=== PATIENT | male | born 1950 | race Caucasian/White ===

== ENCOUNTER 2018-09-10 17:56 | Emergency (ER) | payer MEDICARE ==
[2018-09-10] MEDS ORDERED: Sodium Chloride 0.9% 1,000 ML IV STA (19:05)
[2018-09-10 19:07] VITALS: RESP 18; TEMP 97.9; O2SAT 100
[2018-09-10 20:12] LABS: BASO # 0.06 K/mm3 (0.0-2.0); BASO % 1.3 % (0.0-3.0); EOS % 0.6 % (1.5-5.0); HEMOGLOBIN 12.2 g/dL (14.0-18.0); LYMPH # 1.3 (1.2-3.4); LYMPH % 27.4 % (22.0-35.0); MEAN CELL VOLUME 84.3 fl (80.0-105.0); MEAN CORPUSCULAR HEMOGLOBIN 28.2 pg (25.0-35.0); MEAN CORPUSCULAR HGB CONC 33.4 g/dl (31.0-37.0); MEAN PLATELET VOLUME 12.2 fl (7.0-11.0); MONO # 0.2 (0.1-0.6); MONO % 4.3 % (1.0-6.0); RBC 4.33 10^6/uL (3.5-6.1); RED CELL DISTRIBUTION WIDTH 13.6 % (11.5-14.5); WHITE BLOOD COUNT 4.7 10^3/uL (4.5-11.0)
[2018-09-10 20:14] LABS: PH,URINE 7.5 (4.7-8.0); URINE BILIRUBIN NEGATIVE (NEGATIVE); URINE BLOOD NEGATIVE (NEGATIVE); URINE GLUCOSE (UA) NEGATIVE (NEGATIVE); URINE LEUKOCYTE ESTERASE NEGATIVE Leu/uL (NEGATIVE); URINE PROTEIN TRACE mg/dL (<30 mg/dL); URINE UROBILINOGEN 0.2 E.U./dL (<1 E.U./dL)
[2018-09-10 20:15] LABS: URINE APPEARANCE CLEAR (CLEAR); URINE COLOR LIGHT YELLOW (YELLOW)
[2018-09-10 20:17] LABS: INR 1.11; PARTIAL THROMBOPLASTIN TIME 32.4 Seconds (26.9-38.3); PROTHROMBIN TIME 12.3 SECONDS (9.4-12.5)
[2018-09-10 20:19] LABS: URINE HYALINE CAST 0 - 2 /hpf; URINE RBC 0 - 2 /hpf (0-2)
[2018-09-10 20:26] LABS: ALB/GLOB RATIO 1.2 (1.1-1.8); ALBUMIN 4.5 g/dL (3.0-4.8); ALT/SGPT 15 U/L (7-56); AMYLASE 90 U/L (35-125); AST/SGOT 22 U/L (17-59); BLOOD UREA NITROGEN 24 mg/dL (7-21); CALCIUM 9.7 mg/dL (8.4-10.5); GFR NON-AFRICAN AMERICAN 60; LIPASE 255 U/L (23-300)
[2018-09-10 20:37] LABS: TROPONIN I < 0.01 ng/mL
[2018-09-10 21:46] VITALS: BP 138/75; PULSE 86
--- NOTE | 2018-09-10 21:48 | ED PDOC ---
Arrival/HPI - General Chief Complaint: Back Pain Time Seen by Provider: 09/10/18 18:45 - History of Present Illness Narrative History of Present Illness (Text): 68 y/o male with PMH of HTN presents to the ED c/o right sided flank pain x 1 day. Pain starts in right flank and radiates through right side of abdomen into right groin and testicle, worse with movement. Pt has never experienced pain like this before. Associated nausea. Denies fever, chills, chest pain, SOB, saddle anesthesia, bowel/bladder incontinence, penile discharge, dysuria, vomiting, diarrhea, dizziness, diarrhea, rectal pain, or any other associated symptoms. Past Medical History - Provider Review Nursing Documentation Reviewed: Yes - Cardiac Hx Cardiac Disorders: Yes Hx Hypertension: Yes - Pulmonary Hx Respiratory Disorders: No - Neurological Hx Neurological Disorder: No - HEENT Hx HEENT Disorder: No - Renal Hx Renal Disorder: No - Endocrine/Metabolic Hx Endocrine Disorders: No - Hematological/Oncological Hx Blood Disorders: No - Integumentary Hx Dermatological Disorder: No - Musculoskeletal/Rheumatological Hx Musculoskeletal Disorders: No - Gastrointestinal Hx Gastrointestinal Disorders: No - Genitourinary/Gynecological Hx Genitourinary Disorders: No - Psychiatric Hx Psychophysiologic Disorder: No Hx Substance Use: No - Anesthesia Hx Anesthesia: Yes Hx Anesthesia Reactions: No Hx Malignant Hyperthermia: No Family/Social History - Physician Review Nursing Documentation Reviewed: Yes Family/Social History: No Known Family HX Smoking Status: Never Smoked Hx Alcohol Use: No Hx Substance Use: No Allergies/Home Meds Allergies/Adverse Reactions: Allergies No Known Allergies Allergy (Verified 09/10/18 18:28) Review of Systems - Physician Review All systems were reviewed & negative as marked: Yes - Review of Systems Constitutional: Normal. absent: Fevers Eyes: Normal. absent: Vision Changes ENT: Normal. absent: Sore Throat, Sinus Congestion Respiratory: Normal. absent: SOB, Cough Cardiovascular: Normal. absent: Chest Pain, Palpitations, Syncope Gastrointestinal: Abdominal Pain, Constipation, Nausea. absent: Diarrhea, Vomiting, Appetite Changes Genitourinary Male: Normal, Other (testicular pain). absent: Dysuria, Frequency, Hematuria Musculoskeletal: Back Pain. absent: Neck Pain Skin: Normal. absent: Rash Neurological: Normal. absent: Headache, Dizziness Endocrine: Normal Hemo/Lymphatic: Normal Psychiatric: Normal Physical Exam Vital Signs Reviewed: Yes Vital Signs Temp Pulse Resp BP Pulse Ox 09/10/18 21:45 86 18 138/75 100 09/10/18 19:06 97.9 F 93 H 18 142/85 100 Temperature: Afebrile Blood Pressure: Normal Pulse: Regular Respiratory Rate: Normal Appearance: Positive for: Well-Appearing, Non-Toxic, Comfortable Pain Distress: None Mental Status: Positive for: Alert and Oriented X 3 - Systems Exam Head: Present: Atraumatic, Normocephalic Pupils: Present: PERRL Extroacular Muscles: Present: EOMI Conjunctiva: Present: Normal Mouth: Present: Moist Mucous Membranes Neck: Present: Normal Range of Motion Respiratory/Chest: Present: Clear to Auscultation, Good Air Exchange. No: Respiratory Distress, Accessory Muscle Use Cardiovascular: Present: Regular Rate and Rhythm, Normal S1, S2, Peripheal Pulses Present Abdomen: Present: Tenderness (mild, right sided ), Normal Bowel Sounds. No: Distention, Peritoneal Signs, Rebound, Guarding Genitourinary Male: Present: Testicle Tenderness (right), Hernias (bilateral inguinal, reducible), Other (small right testicle). No: Penile Discharge, Penile Swelling, Masses, Erythema, Testicle Swelling Back: Present: Normal Inspection, CVA Tenderness (right). No: Midline Tenderness, Paraspinal Tenderness Upper Extremity: Present: Normal Inspection, Normal ROM, NORMAL PULSES, Neurovascularly Intact, Capillary Refill < 2s. No: Cyanosis, Edema, Tenderness, Temperature Abnormalties Lower Extremity: Present: Normal Inspection, NORMAL PULSES, Normal ROM, Neurovascularly Intact, Capillary Refill < 2 s. No: Edema, Tenderness, Swelling, Temperature Abnormalties Neurological: Present: GCS=15, CN II-XII Intact, Speech Normal, Motor Func Grossly Intact, Normal Sensory Function, Gait Normal Skin: Present: Warm, Dry, Normal Color. 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 Virginia Walsh, who recommends discharge home with outpatient urology followup. Discussed results of diagnostic imaging, results faxed to him along with patient's face sheet. Advised pt to followup with Dr. Walsh in the AM. Pt verbalized understanding, states he will followup. Discussed case and diagnostic testing results in depth with ED attending Dr Singh who recommends discharge home with Jim Benavides and GI/urology followup. Diagnostic testing results and plan of care discussed with patient. Strict instructions given regarding prescription use, importance of followup, and signs/symptoms to return to ER including worsening pain, intractable vomiting, or any other new/worsening symptoms. Pt verbalized understanding of discussion. Patient is A&Ox3, ambulating with steady gait, with vital signs stable for discharge. - Lab Interpretations Lab Results: PT 12.3 SECONDS (9.4-12.5) 09/10/18 19:53 INR 1.11 09/10/18 19:53 APTT 32.4 Seconds (26.9-38.3) 09/10/18 19:53 Troponin I < 0.01 ng/mL 09/10/18 19:53 Total Bilirubin 0.6 mg/dL (0.2-1.3) 09/10/18 19:53 AST 22 U/L (17-59) 09/10/18 19:53 ALT 15 U/L (7-56) 09/10/18 19:53 Alkaline Phosphatase 61 U/L (38-126) 09/10/18 19:53 Total Protein 8.2 g/dL (5.8-8.3) 09/10/18 19:53 Albumin 4.5 g/dL (3.0-4.8) 09/10/18 19:53 Globulin 3.7 gm/dL 09/10/18 19:53 Albumin/Globulin Ratio 1.2 (1.1-1.8) 09/10/18 19:53 Amylase 90 U/L (35-125) 09/10/18 19:53 Lipase 255 U/L (23-300) 09/10/18 19:53 Urine Color Light yellow (YELLOW) 09/10/18 19:53 Urine Appearance Clear (CLEAR) 09/10/18 19:53 Urine pH 7.5 (4.7-8.0) 09/10/18 19:53 Ur Specific [place] 1.020 (1.005-1.035) 09/10/18 19:53 Urine Protein Trace mg/dL (<30 mg/dL) H 09/10/18 19:53 Urine Glucose (UA) Negative mg/dL (NEGATIVE) 09/10/18 19:53 Urine Ketones Negative mg/dL (NEGATIVE) 09/10/18 19:53 Urine Blood Negative (NEGATIVE) 09/10/18 19:53 Urine Nitrate Negative (NEGATIVE) 09/10/18 19:53 Urine Bilirubin Negative (NEGATIVE) 09/10/18 19:53 Urine Urobilinogen 0.2 E.U./dL (<1 E.U./dL) 09/10/18 19:53 Ur Leukocyte Esterase Negative Duane/uL (NEGATIVE) 09/10/18 19:53 Urine RBC 0 - 2 /hpf (0-2) 09/10/18 19:53 Urine WBC None /hpf (0-6) 09/10/18 19:53 Ur Epithelial Cells None /hpf (0-5) 09/10/18 19:53 Hyaline Casts 0 - 2 /hpf (NONE) 09/10/18 19:53 09/10/18 19:53 09/10/18 19:53 Lab Results 09/10/18 19:53: Sodium 140, Potassium 4.2, Chloride 102, Carbon Dioxide 30, Anion Gap 12, BUN 24 H, Creatinine 1.2, Est GFR ( Amer) > 60, Est GFR (Non-Af Amer) 60, Random Glucose 119 H, Calcium 9.7, Total Bilirubin 0.6, AST 22, ALT 15, Alkaline Phosphatase 61, Lactate Dehydrogenase 543, Total Creatine Kinase 107, Troponin I < 0.01, Total Protein 8.2, Albumin 4.5, Globulin 3.7, Albumin/Globulin Ratio 1.2, Amylase 90, Lipase 255 09/10/18 19:53: Urine Color Light yellow, Urine Appearance Clear, Urine pH 7.5, Ur Specific [place] 1.020, Urine Protein Trace H, Urine Glucose (UA) Negative, Urine Ketones Negative, Urine Blood Negative, Urine Nitrate Negative, Urine Bilirubin Negative, Urine Urobilinogen 0.2, Ur Leukocyte Esterase Negative, Urine RBC 0 - 2, Urine WBC None, Ur Epithelial Cells None, Hyaline Casts 0 - 2 09/10/18 19:53: PT 12.3, INR 1.11, APTT 32.4 09/10/18 19:53: WBC 4.7, RBC 4.33, Hgb 12.2 L, Hct 36.5 L, MCV 84.3, MCH 28.2, MCHC 33.4, RDW 13.6, Plt Count 151, MPV 12.2 H, Neut % (Auto) 66.4, Lymph % (Auto) 27.4, Murray % (Auto) 4.3, Eos % (Auto) 0.6 L, Baso % (Auto) 1.3, Lymph # (Auto) 1.3, Murray # (Auto) 0.2, Eos # (Auto) 0.0, Baso # (Auto) 0.06, Absolute Neuts (auto) 3.12 - RAD Interpretation Narrative RAD Interpretations (Text): 09/10/18 21:48 US - TESTICULAR History RT TESTES AND GROIN PAIN. Technique Realtime sonography through the scrotum with color and Doppler flow. Comparison None Available. Findings Right Testicle Atrophic and heterogeneous. Measures 2.62 x 1.03 x 1.59 cm. Minimal flow is seen peripherally. Right Epididymis Epididymal head measures 0.53 x 0.33 x 0.71 cm and tail measures 0.95 x 0.81 x 0.8 cm. Left Testicle Measures 6.02 x 1.91 x 3.26 cm. Normal echotexture and flow. Grossly un remarkable appearance with normal flow. Left Epididymis Epididymal head measures 0.55 x 0.7 x 0.5 cm and tail measures 1.4 x 0.78 x 1.08 cm. Hydrocele Left. Varicocele Left. Other Findings None. Impression 1. Left sided hydrocele. 2. Left sided varicocele. 3. Atrophic and heterogeneous right testicle with minimal flow. These findings suggest chronic torsion 09/10/18 22:07 CT Abdomen and Pelvis with IV contrast CLINICAL HISTORY: RLQ PAIN - RIGHT FLANK PAIN TECHNIQUE: Axial computed tomography images of the abdomen and pelvis with intravenous contrast. 1348.76 mGy-cm CONTRAST: With; OMNI 350 150 ml COMPARISON: None provided. FINDINGS: LUNG BASES: Mild dependent atelectasis near the lung bases. The visualized heart is mildly enlarged. LIVER: Unremarkable. GALLBLADDER AND BILE DUCTS: The gallbladder appears within normal limits. No radioopaque gallstones are seen. No biliary ductal dilatation is evident. PANCREAS: Unremarkable. SPLEEN: Unremarkable. ADRENAL GLANDS: Unremarkable. KIDNEYS, URETERS, AND BLADDER: Both kidneys are markedly lobulated. Multiple left renal cysts, largest at the midpole measuring 4.0 cm on series 2, image 34. At the right lower pole, there is a hypodense exophytic lesion which measures 57 Hounsfield units in density on the postcontrast images. This lesion is 1.6 cm in diameter. This is incompletely characterized on this postcontrast study. Possibilities include proteinaceous or hemorrhagic cyst versus an enhancing lesion. If indicated, this could be further evaluated with renal mass protocol CT or renal sonogram. STOMACH AND BOWEL: There is mild sigmoid diverticulosis without convincing evidence for acute diverticulitis. Thick walled fluid filled duodenum and loops of jejunum as well as ileum compatible with enteritis. Infectious and inflammatory etiologies are considered. Consider consultation with GI service. APPENDIX: Normal appendix is identified in the right lower quadrant. PERITONEUM: No free fluid. No free air. LYMPH NODES: No lymphadenopathy is evident. REPRODUCTIVE: Prostate is enlarged measuring 5.7 cm transverse. VASCULATURE: Abdominal aorta demonstrates moderately severe atherosclerotic calcification without aneurysm. There is also moderate to severe atherosclerotic change of the common iliac arteries bilaterally, right worse than left. BONES: Mild to moderate multilevel degenerative spine changes. MISCELLANEOUS: Median sternotomy wires are noted. 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 There is a punctate nonobstructing right mid pole calculus measuring 3 mm. There are left greater than right fat containing inguinal hernias. IMPRESSION: 1. Enteritis. Infectious and inflammatory etiologies are considered. Consider consultation with GI service. 2. At the right renal lower pole, there is a hypodense exophytic lesion which measures 57 Hounsfield units in density on the postcontrast images. This lesion is 1.6 cm in diameter. This is incompletely characterized on this postcontrast study. Possibilities include proteinaceous or hemorrhagic cyst versus an enhancing lesion. If indicated, this could be further evaluated with renal mass protocol CT or renal sonogram. 3. Prostate is enlarged measuring 5.7 cm transverse. 4. There is mild sigmoid diverticulosis without convincing evidence for acute diverticulitis. 5. Normal appendix is identified in the right lower quadrant. 6. There are left greater than right fat containing inguinal hernias. 7. Additional findings as described above. 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 - Medication Orders Current Medication Orders: Sodium Chloride (Sodium Chloride 0.9%) 1,000 mls @ 100 mls/hr IV .Q10H STA Stop: 09/11/18 05:04 Last Admin: 09/10/18 19:56 Dose: 100 mls/hr eMAR Start Stop Document 09/10/18 19:56 [place] (Rec: 09/10/18 19:56 [id number] Intravenous Solution Start Date 09/10/18 Start Time 19:56 Discontinued Medications Ketorolac Tromethamine (Toradol) 30 mg IVP STAT STA Stop: 09/10/18 19:06 Last Admin: 09/10/18 19:55 Dose: 30 mg MAR Pain Assessment Document 09/10/18 19:55 LA (Rec: 09/10/18 19:56 LA [id number]) Pain Reassessment Is this a pain reassessment? No Sleep Is patient sleeping during reassessment? No Presence of Pain Presence of Pain Yes Pain Scale Used Protocol: PSCALES Pain Scale Used Numeric Location Pain Location Body Site Abdomen Description Intensity of Pain at present 5 IVP Administration Document 09/10/18 19:55 LA (Rec: 09/10/18 19:56 LA [id number]) Charges for Administration # of IVP Administrations 1 Ondansetron HCl (Zofran Inj) 4 mg IVP STAT STA Stop: 09/10/18 19:06 Last Admin: 09/10/18 19:56 Dose: 4 mg IVP Administration Document 09/10/18 19:56 LA (Rec: 09/10/18 19:56 [id number] Charges for Administration # of IVP Administrations 1 Disposition/Present on Arrival - Present on Arrival Any Indicators Present on Arrival: No History of DVT/PE: No History of Uncontrolled Diabetes: No Urinary Catheter: No History of Decub. Ulcer: No History Surgical Site Infection Following: None - Disposition Have Diagnosis and Disposition been Completed?: Yes Diagnosis: Inguinal hernia, Enteritis, Testicular torsion Disposition: HOME/ ROUTINE Disposition Time: 23:00 Condition: STABLE Discharge Instructions (ExitCare): Inguinal and Femoral (Groin) Hernias, Testicular Torsion, Adult, Colitis (DC) Additional Instructions: Cipro 500mg every 12 hours for 10 days Flagyl every 8 hours for 10 days Increase fluids Followup with general surgeon within 2 days Followup with urology tomorrow [Vriginia Walsh] Followup with GI within 2 days Return to ER with any new/worsening symptoms Prescriptions: Ciprofloxacin HCl [Cipro] 500 mg PO Q12H 10 Days #13 tab Metronidazole [Flagyl] 500 mg PO Q8H 10 Days #32 tablet Referrals: Gary Parker MD [Primary Care Provider] - Follow up with primary Caitlin Araujo MD [Medical Doctor] - Follow up with primary Virginia Walsh MD [Staff Provider] - Follow up with primary Halina Antonio MD [Staff Provider] - Follow up with primary Forms: [employer] (Czech), WORK NOTE
--- NOTE | 2018-09-11 08:40 | CT ---
Date of service: 09/10/2018 PROCEDURE: CT Abdomen and Pelvis with contrast HISTORY: RLQ pain, right flank pain COMPARISON: None. TECHNIQUE: Contrast dose: 150 cc of Omni 350 Radiation dose: Total exam DLP = 1348.76 mGy-cm. This CT exam was performed using one or more of the following dose reduction techniques: Automated exposure control, adjustment of the mA and/or kV according to patient size, and/or use of iterative reconstruction technique. FINDINGS: LOWER THORAX: Unremarkable. LIVER: Unremarkable. No gross lesion or ductal dilatation. GALLBLADDER AND BILE DUCTS: Unremarkable. PANCREAS: Unremarkable. No gross lesion or ductal dilatation. SPLEEN: Unremarkable. ADRENALS: Unremarkable. No mass. KIDNEYS AND URETERS: Unremarkable. No hydronephrosis. No solid mass. 5 mm stone in the lower pole of the right kidney. VASCULATURE: Unremarkable. No aortic aneurysm. Aortic and iliac calcification BOWEL: Unremarkable. No obstruction. No gross mural thickening. APPENDIX: Normal appendix. PERITONEUM: Unremarkable. No free fluid. No free air. LYMPH NODES: Unremarkable. No enlarged lymph nodes. BLADDER: Unremarkable. REPRODUCTIVE: Prostate is mildly enlarged measuring 39 x 55 mm BONES: No acute fracture. OTHER FINDINGS: The report concurs with the preliminary [facility] report IMPRESSION: No acute intra-abdominal findings
--- NOTE | 2018-09-11 08:49 | RAD ---
Date of service: 09/10/2018 HISTORY: abd pain COMPARISON: No prior. FINDINGS: LUNGS: No active pulmonary disease. PLEURA: No significant pleural effusion identified, no pneumothorax apparent. CARDIOVASCULAR: No aortic atherosclerotic calcification present. Moderate cardiomegaly. No pulmonary vascular congestion. OSSEOUS STRUCTURES: Sternal wires VISUALIZED UPPER ABDOMEN: Normal. OTHER FINDINGS: None. IMPRESSION: No active disease.
--- NOTE | 2018-09-11 10:29 | US ---
Date of service: 09/10/2018 HISTORY: right testicle and groin pain TECHNIQUE: Realtime sonography through the scrotum with color and doppler flow. COMPARISON: None Available. FINDINGS: RIGHT TESTICLE: Measures 1 x 1.6 x 2.6 cm. Atrophic right kidney, heterogeneous echo characteristics, trace peripheral flow. RIGHT EPIDIDYMIS: Epididymal head measures 0.5 x 0.3 cm. Grossly unremarkable appearance with normal flow. LEFT TESTICLE: Measures 1.9 x 3.4 x 6.2 cm. Normal echotexture and flow. LEFT EPIDIDYMIS: Epididymal head measures 0.8 x 1.4 cm. Grossly unremarkable appearance with normal flow. HYDROCELE: Trace unilateral left hydrocele VARICOCELE: Unilateral, left varicocele OTHER FINDINGS: None. IMPRESSION: Atrophic right kidney, overall appearance suggests a chronic process. Flow identified to the periphery of the testicle. Compensatory hypertrophy of left testicle supporting a diagnosis of chronic findings right testicle. Unilateral, left hydrocele, small. Unilateral, left varicocele. Concordant findings (preliminary report) provided by [facility].
--- NOTE | 2018-09-11 18:39 | CARD ---
APPROVED REPORT Date of service: 09/10/2018 EKG Measurement Heart [id number] <Conclusion> Normal sinus rhythm Right bundle branch block Inferior infarct, age undetermined Abnormal ECG
== END 2018-09-10 23:25 | disposition home or self-care (01) ==
LOC: ED 17:56
DX: K40.90 Unilateral inguinal hernia, without obstruction or gangrene, not specified as recurrent (principal); K52.9 Noninfective gastroenteritis and colitis, unspecified; N44.00 Torsion of testis, unspecified; I10 Essential (primary) hypertension
CPT/HCPCS: 71045; 74177; 80053; 81001; 82150; 82550; 83615; 83690; 84484; 85025; 85610; 85730; 87086; 93005; 93975; 96374; 96375; 99283; J1885; J2405; J7030; Q9967